=== PATIENT | female | born 2000 | race Caucasian/White ===

== ENCOUNTER 2020-04-19 17:59 | Emergency (ER) | payer OTHER | END 2020-04-19 18:54 | disposition home or self-care (01) | LOC: ED 17:59 | DX: F19.10 Other psychoactive substance abuse, uncomplicated (principal) ==

== ENCOUNTER 2024-03-31 18:19 | Emergency (ER) | payer OTHER ==
[~2024-03-31] VITALS: Ht 167.6 cm; Wt 75.9 kg
[2024-03-31] MEDS ORDERED: BUSPAR15 MG PO (18:29)
[2024-03-31] MEDS ORDERED: SERTRALINE HYD100 MG PO (18:29)
[2024-03-31] MEDS ORDERED: TRAZODONE100 MG PO (18:29)
[2024-03-31] MEDS ORDERED: Ketorolac Tromethamine 30 MG/ML VIAL IV ONE (18:40)
[2024-03-31] MEDS ORDERED: SODIUM CHLORIDE 0.9% 1,000 ML IV ONE (18:40)
[2024-03-31] MEDS ORDERED: Metoclopramide Hydrochloride 10 MG/2 ML AMP IV ONE (18:40)
[2024-03-31] MEDS ORDERED: diphenhydrAMINE hydrochloride 50 MG/ML VIAL IV ONE (18:40)
[2024-03-31] MEDS ORDERED: VIBRAMYCIN HYC100 MG PO (19:41)
== END 2024-03-31 19:56 | disposition home or self-care (01) ==
LOC: ED 18:19
DX: J32.9 Chronic sinusitis, unspecified (principal); Z20.822 Contact with and (suspected) exposure to COVID-19; H92.03 Otalgia, bilateral; Z88.0 Allergy status to penicillin